=== PATIENT | male | born 2005 | race Hispanic/Latino ===

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

== ENCOUNTER 2024-01-27 00:42 | Emergency (ER) | payer MEDICAID, SELFPAY ==
[2024-01-27 00:48] VITALS: BP 125/93; PULSE 140; RESP 22; TEMP 36.3; O2SAT 97
--- NOTE | 2024-01-27 01:26 | PC.NURSE ---
Patient pacing in ED waiting room, had a visitor arrive. Patient removed his shoes and socks, and pacing. Patient then ambulated outside to call 911. Patient went outside to speak with officer that responded and patient ambulated back inside and sat at intake desk asking when am I going to see a doctor? This RN informed patient that I cannot give out wait times as that is always changing. Patient did not acknowledge this RN and looked to the officer behind him. The patient then got up and started to pace the waiting room.
--- NOTE | 2024-01-27 01:40 | PC.NURSE ---
Patient called 911 again from waiting room. An officer here already, instructs the patient in front of this RN You need to stop calling 911. Patient does not acknowledge officers statement. patient comes to intake desk to state [facility] Patient asking his visitor to take him to [facility]. Patients visitor speaking with patient and keeping him calm. Patient hard to be redirected, keeps stating I'm not tripping bro. I'm not high. Patient speaking with officer in waiting room.
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
--- NOTE | 2024-01-27 02:02 | PC.NURSE ---
Patient outside with PD at this time. PD speaking with patient and his visitor.
--- NOTE | 2024-01-27 02:13 | PC.NURSE ---
Patient left with PD, seen getting into PD vehicle. Patient marked as left without being seen, triaged.
== END 2024-01-27 02:15 | disposition left against medical advice (07) ==
PROVIDERS: PCP Internal Medicine
DX: F41.9 Anxiety disorder, unspecified (principal)
CPT/HCPCS: 99199